=== PATIENT | female | born 1950 | race Caucasian/White ===

== ENCOUNTER 2017-09-02 09:39 | Observation (INO) | payer MEDICARE, BC ==
[~2017-09-02] VITALS: Ht 160 cm; Wt 72.3 kg
[2017-09-02] MEDS ORDERED: ceFAZolin 2 GM PREMIX 50 ML IV SCH (10:15)
[2017-09-02] MEDS ORDERED: MOME17I EACH NARE (10:36)
[2017-09-02] MEDS ORDERED: MULT-11 PO (10:36)
[2017-09-02] MEDS ORDERED: CALC1TAB12 PO (10:36)
[2017-09-02 10:45] LABS: HEMOGLOBIN 12.5 GM/DL (11.6-15.3); MEAN CELL VOLUME 92.4 FL (80.0-100.0); MEAN CORPUSCULAR HEMOGLOBIN 32.2 PG (27.0-34.0); MEAN CORPUSCULAR HGB CONC 34.8 % (32.0-36.0); MEAN PLATELET VOLUME 6.7 FL (7.0-11.0); PLATELET COUNT 291 TH/MM3 (150-450); RED BLOOD COUNT 3.89 MIL/MM3 (4.00-5.30); RED CELL DISTRIBUTION WIDTH 11.8 % (11.6-17.2); WHITE BLOOD COUNT 3.1 TH/MM3 (4.0-11.0)
[2017-09-02] MEDS ORDERED: LACTATED RINGER'S 1000 ML INJ 1,000 ML ONE (11:03)
[2017-09-02] MEDS ORDERED: ACETAMINOPHEN 1000 MG/100 ML 100 ML IV ONE (11:55)
[2017-09-02] MEDS ORDERED: BUPIVACAINE HCL PF 0.5% 30 ML VIAL ONE (12:29)
[2017-09-02] MEDS ORDERED: *HYDROmorphone PF 1 MG VIAL PERIprocedural Use ONLY ONE ×2 (15:29→16:42)
[2017-09-02 15:30] VITALS: PULSE 92
[2017-09-02] MEDS ORDERED: MIDAZOLAM HCL 2 MG/2 ML VIAL ONE (15:40)
[2017-09-02] MEDS ORDERED: *MEPERIDINE 25 MG INJ VIAL PERIprocedural Use ONLY ONE (15:49)
[2017-09-02] MEDS ORDERED: MORPHINE SULFATE 8 MG/ML INJ ONE (16:18)
[2017-09-02] MEDS ORDERED: MORPHINE SULFATE 8 MG/ML INJ IM PRN (16:30)
[2017-09-02] MEDS ORDERED: PROMETHAZINE INJ 25 MG/ML VIAL IM PRN (16:30)
[2017-09-02] MEDS ORDERED: *Lactated Ringer's INJ 1,000 ML ONE (16:37)
[2017-09-02 17:00] VITALS: PULSE 91
[2017-09-02 17:45] VITALS: BP 153/93; PULSE 96; RESP 14; TEMP 96.3; O2SAT 99
[2017-09-02 20:00] VITALS: BP 132/65; PULSE 109; RESP 20; TEMP 96.5; O2SAT 99
[2017-09-02] MEDS: CEPHALEXIN MONOHYDRATE 500 MG CAP PO SCH (21:26)
[2017-09-03] VITALS: BP 133/61; PULSE 98; RESP 20; TEMP 97.1; O2SAT 98
[2017-09-03 08:00] VITALS: BP 144/72; PULSE 96; RESP 18; TEMP 99.4; O2SAT 96
[2017-09-03] MEDS: CEPHALEXIN MONOHYDRATE 500 MG CAP PO SCH (08:06)
[2017-09-03] MEDS: ACETAMINOPHEN/HYDROcodone 325 MG/7.5 MG TAB PO PRN ×2 (08:06→14:11)
--- NOTE | 2017-09-03 08:10 | MP ---
cc: Reagan Ruelas MD DATE OF OPERATION: 09/02/2017 PREOPERATIVE DIAGNOSIS: Left wrist fracture distal radius and ulnar styloid. POSTOPERATIVE DIAGNOSIS: Left wrist fracture distal radius and ulnar styloid. PROCEDURE: Open reduction, internal fixation, left wrist, utilizing Synthes locking plate and K-wires. PROCEDURE IN DETAIL: Informed consent was obtained. The patient was taken to the operating room and placed in the supine position on the operating table. She was administered general anesthesia by Dr. Carmichael of the Anesthesia department. At that time the table was rotated and the C-arm was brought into position. The left wrist was examined. There was a comminuted depressed fracture of the distal radius with dorsal angulation, this was an intraarticular fracture. Reduction maneuvers were performed, however, the fracture could not be entirely reduced. At that time however, the fracture alignment was improved and tourniquet was applied to the left arm. The left upper extremity was prepped with Betadine soap followed by Betadine paint. Draping commenced with sterile down sheets, sterile towel about the tourniquet. Stockinette was applied to the hand and forearm and extremity drape was applied. The patient was given a gram of Ancef prior to the initiation of the operative procedure. A timeout was held and confirmed. At that time the arm was elevated and the tourniquet was inflated to 250 mmHg. The stockinette was cut and marking pen was utilized to map out the proposed skin incision which was in the volar aspect of the wrist along the radial border of the flexor carpi radialis. Skin incision was made. Skin and subcutaneous tissue was divided. Dissection was carried down alongside of the flexor carpi radialis to bone. The radial artery was retracted radially and the flexor carpi radialis was retracted in the medial direction. The median nerve was also retracted. It was identified and protected through the procedure. The fracture site was examined and there was significant degree of healing which had already occurred, which limited mobility to the fracture. Utilizing osteotome and the C-arm the fracture site was identified and was entered. The fracture was manually elevated, breaking up some healing bone to allow for mobilization of the fracture fragments. When satisfactory position was obtained utilizing clamps and pins, a Synthes volar locking plate with 6 screw holes, locking screws distally, 3 plate fixation holes proximally was placed and affixed to the bone utilizing 3 of the plate holding screws and additional locking screws. Once the procedure was completed, it was noted there was still some looseness of the radial styloid fragment and this was fixed with two Karl wires and felt to be quite stable. At that time the tourniquet was deflated. Total tourniquet time was 94 minutes. The wound was irrigated, then closed utilizing 2-0 Vicryl, 3-0 plain and 4-0 nylon sutures. It should be noted that pronation, supination appeared excellent following the procedure. This was a block to a certain degree prior to the procedure. The subcutaneous tissue was closed with 3-0 plain and the skin with 4-0 nylon interrupted horizontal mattress stitches. Small incision was made for the 2 Karl wires, had a suture applied in the proximal portion. Two Jurgan's balls were applied to the pins. The tourniquet was deflated prior to wound closure and total tourniquet time was 94 minutes. At that time Xeroform, 4 x 4s, Sof-Rol and a long-arm sugar tong plaster splint was applied. This was followed by Sof-Rol and Devan wrap. The patient tolerated the procedure well and was taken to the recovery room in stable condition. At the completion of the procedure sponge count, instrument count, needle counts were correct. The estimated blood loss was less than 10 mL. MD CARRIE Ribera/JODY/rainer , 03:32 PM , 04:25 PM
[2017-09-03 12:00] VITALS: BP 138/77; PULSE 94; RESP 18; TEMP 98.3; O2SAT 100
[2017-09-03] MEDS ORDERED: PERC7.5T13 PO (17:27)
== END 2017-09-03 19:04 | disposition home or self-care (01) ==
LOC: PHSDC 09:39 → PH3A 17:34
PROVIDERS: ADMIT Orthopaedic Surgery; ATTEND Orthopaedic Surgery
DX: S52.572A Other intraarticular fracture of lower end of left radius, initial encounter for closed fracture (principal); S52.612A Displaced fracture of left ulna styloid process, initial encounter for closed fracture
CPT/HCPCS: 01830; 25608; 25652; 36415; 76000; 85027; 96374; C1713; G0378; J0131; J0690; J1170; J2175; J2250; J2270; J3010; J7120